=== PATIENT | male | born 1965 | race Caucasian/White ===

== ENCOUNTER 2016-07-01 00:27 | Inpatient (IN) | payer BC ==
[~2016-07-01] VITALS: Ht 182.9 cm; Wt 104.2 kg
[2016-07-01] MEDS ORDERED: NALOXONE 0.4 MG/ML, 1ML IVPush PRN (01:00)
[2016-07-01 01:10] LABS: ASPARTATE AMINO TRANSFERASE 18 U/L (15-37); BLOOD UREA NITROGEN 19 mg/dL (7-18)
[2016-07-01 01:13] LABS: ACETAMINOPHEN < 2 mcg/mL (10-30)
[2016-07-01] MEDS ORDERED: NALOXONE 0.4 MG/ML, 1ML ONE (01:26)
[2016-07-01] MEDS ORDERED: SODIUM CHLORIDE 0.9% 1,000 ML IV ONE (01:30)
[2016-07-01] MEDS ORDERED: SODIUM CHLORIDE 0.9% 1,000ML IVBOLUS ONE (01:30)
[2016-07-01] MEDS ORDERED: LATUDA (01:35)
[2016-07-01] MEDS ORDERED: [UNRECOGNIZED DRUG - OTHER] (01:35)
[2016-07-01] MEDS ORDERED: XANAX (01:36)
[2016-07-01] MEDS ORDERED: TRAZODONE (01:36)
[2016-07-01] MEDS ORDERED: FETZIMA (01:37)
[2016-07-01] MEDS ORDERED: LISINOPRIL (01:46)
[2016-07-01 02:43] LABS: DAU SCREEN DISCLAIMER
[2016-07-01] MEDS ORDERED: DOCUSATE 100 MG CAPSULE PO PRN (03:30)
[2016-07-01] MEDS ORDERED: ONDANSETRON 2MG/ML, 2ML IVP PRN (03:30)
[2016-07-01] MEDS ORDERED: BISACODYL 10 MG SUPP PR PRN (03:30)
[2016-07-01] MEDS ORDERED: ACETAMINOPHEN 325 MG TABLET PO PRN (03:30)
[2016-07-01] MEDS ORDERED: POLYETHYLENE GLYCOL 17 GM PACKET PO PRN (03:30)
[2016-07-01] MEDS ORDERED: NS + 20MEQ KCL 1,000 ML IV ONE (03:48)
[2016-07-01] MEDS ORDERED: ENOXAPARIN 40 MG/0.4 ML ONE (03:49)
[2016-07-01] MEDS: ENOXAPARIN 40 MG/0.4 ML SQ SCH (03:57)
[2016-07-01] MEDS: PLEASE ENTER ALLERGIES MC SCH ×18 (03:57→12:00)
[2016-07-01] MEDS: NS + 20MEQ KCL 1,000 ML IV SCH ×2 (03:57→11:43)
[2016-07-01] MEDS ORDERED: THIAMINE 100MG TABLET ONE (09:40)
[2016-07-01] MEDS: FOLIC ACID 1 MG TABLET PO SCH (09:42)
[2016-07-01] MEDS: THIAMINE 100MG TABLET PO SCH (09:42)
[2016-07-01 13:00] VITALS: BP 135/83
[2016-07-01 13:54] VITALS: BP 118/73
[2016-07-01 17:42] VITALS: BP 144/87
[2016-07-01 19:35] VITALS: BP 116/75
[2016-07-02] MEDS: ENOXAPARIN 40 MG/0.4 ML SQ SCH (03:30)
[2016-07-02 06:03] LABS: HEMOGLOBIN 14.4 g/dL (13.7-18.0)
[2016-07-02 06:27] LABS: BLOOD UREA NITROGEN 13 mg/dL (7-18)
[2016-07-02 07:14] VITALS: BP 109/68
[2016-07-02] MEDS: FOLIC ACID 1 MG TABLET PO SCH (08:23)
[2016-07-02] MEDS: THIAMINE 100MG TABLET PO SCH (08:24)
== END 2016-07-02 14:31 | DRG 917 ==
LOC: ED 01:56 → EDIP 02:14 → 5SO 10:27 → 3E 17:35
DX: T43.212A Poisoning by selective serotonin and norepinephrine reuptake inhibitors, intentional self-harm, initial encounter (principal); N17.0 Acute kidney failure with tubular necrosis; E87.2 Acidosis; E44.1 Mild protein-calorie malnutrition; I10 Essential (primary) hypertension; F41.9 Anxiety disorder, unspecified; F32.9 Major depressive disorder, single episode, unspecified; F10.129 Alcohol abuse with intoxication, unspecified; E86.0 Dehydration; Z72.0 Tobacco use; Z79.899 Other long term (current) drug therapy; Z91.14 Patient's other noncompliance with medication regimen; Y92.89 Other specified places as the place of occurrence of the external cause
CPT/HCPCS: 36415; 80048; 80053; 80307; 80329; 85025; 93005; 96361; 96372; 96374; J1650; J2310; J3480; G0480; J7030